=== PATIENT | male | born 1970 | race Caucasian/White ===

== ENCOUNTER 2021-01-17 17:49 | Emergency (ER) | payer OTHER, SELFPAY ==
[2021-01-17 18:31] VITALS: BP 150/79; BP 156/82; PULSE 106; PULSE 113; RESP 18; TEMP 37.4; O2SAT 96; BMI 35.4
--- NOTE | 2021-01-17 18:39 | ED_ITS ---
HPI - Alcohol General Chief Complaint: Psychiatric Symptoms Stated Complaint: SI/ETOH Source: patient and EMS Mode of arrival: EMS Limitations: no limitations History of Present Illness HPI narrative: 50-year-old male presents via EMS for alcohol abuse. Patient is requesting detox at this time. MD complaint: alcohol dependence, desires rehab and medical clearance for detox facility Last drink: Just prior to admission Chronic alcohol use: Yes Previous visits for alcohol intoxication: Yes Recent trauma: No Associated symptoms: denies other symptoms Treatments prior to arrival: none Related Data Home Medications Medication Instructions Recorded Confirmed dulaglutide 1.5 mg/0.5 mL 1.5 mg SUBCUT QWEEK 01/17/21 01/17/21 subcutaneous pen injector (Trulicity) lisinopril 20 mg tablet 1 tab PO DAILY 01/17/21 01/17/21 lorazepam 0.5 mg tablet 1 tab PO TID PRN 01/17/21 01/17/21 metformin 1,000 mg tablet 1 tab PO BID 01/17/21 01/17/21 nadolol 20 mg tablet 1 tab PO DAILY 01/17/21 01/17/21 nicotine (polacrilex) 2 mg gum 1 ea PO Q2H PRN 01/17/21 01/17/21 polyethylene glycol 3350 17 17 g PO DAILY 01/17/21 01/17/21 gram/dose oral powder Previous Rx's Medication Instructions Recorded lorazepam 2 mg tablet (Ativan) 2 mg PO Q4H PRN #7 tab 01/17/21 Allergies Allergy/AdvReac Type Severity Reaction Status Date / Time gabapentin [GABAPENTIN] AdvReac Unknown PALPITATIONS, Unverified 12/18/19 15:13 DIZZY, NAUSEA. Review of Systems Review of Systems: Constitutional: No Fever, No Chills ENT/Mouth: No sore throat, No Rhinorrhea Eyes: No Eye Pain, No Swelling, No Redness Cardiovascular: No Chest Pain, No SOB Respiratory: No Cough, No Sputum Gastrointestinal: No Nausea, No Vomiting, No Diarrhea, No abdominal Pain Genitourinary: No Dysuria, No Hematuria Musculoskeletal: No joint pain, No Myalgias, No Joint Swelling Skin: No Skin Lesions, No rash Neuro: No Weakness, No Numbness, No Loss of Consciousness, No Dizziness, No Headache Psych: Positive alcohol abuse, No Anxiety, No Depression, No SI/HI/AH/VH Heme/Lymph: No Bruising, No Bleeding,No Lymphadenopathy Endocrine: No Polyuria, No Polydipsia Yes all other systems are reviewed and are negative [facility] Past Medical History Attestation statement: The following information was validated with the patient. Source: old records reviewed Social History Social History Advance Directives: No Advance Directives Information Provided: Yes Physical Exam Vital Signs: Vital Signs: Last Vital Signs Temp 99.3 F 01/17/21 18:31 Pulse 113 H 01/17/21 18:31 Resp 18 01/17/21 18:31 BP 150/79 H 01/17/21 18:31 Pulse Ox 96 01/17/21 18:31 Body Mass Index 35.4 Appearance: Alert. Oriented X3. No acute distress. Eyes: Pupils equal, round and reactive to light. ENT: Pharynx normal. Neck: Normal inspection. Neck supple. CVS: Normal heart rate and rhythm. Pulses normal. Respiratory: No respiratory distress. Breath sounds normal. Abdomen: Soft and nontender. Skin: Skin warm and dry. Normal skin color. Normal skin turgor. Extremities: No lower extremity edema. Moves all extremities against resistance. Gait well bowels well coordinated. Neuro: No motor deficit. No sensory deficit. Cranial nerves 2-12 intact. Course Course Course Narrative: [age] year male presenting for detox assistance for alcohol abuse. Recently diagnosed with cirrhosis, and treated for alcohol withdrawal seizures at [facility] last month. Patient does state feel hopeless, and does not have any benzo diazepam at this time to help him with his withdrawal symptoms. N consult was complete while patient was in the community. Plan of care is for patient to go to [facility] in the morning. I will prescribe enough Ativan for tonight and tomorrow to help him with his withdrawal symptoms. Patient is not suicidal or homicidal, patient, [facility]N and I are in agreement with this plan. Patient does understand that he is to return any time. Could also be discharged from this facility to detox. Patient verbalized understanding of and agrees plan of care discharge home. MDM - Alcohol Differential Diagnosis Differential diagnosis: Likely alcohol dependence and alcohol withdrawal [facility] Medical Records Attestation: I reviewed the patient's medical records. Lab Data Attestation: I reviewed the patient's lab results. Result diagrams: 01/17/21 18:48 01/17/21 18:48 Labs: Lab Results 01/17/21 01/17/21 01/17/21 Range/Units 18:48 18:48 18:48 WBC 6.6 (4.8-10.8) X10*3/uL RBC 5.02 (4.60-5.80) X10*6/uL Hgb 15.0 (14.0-18.0) g/dl Hct 43.1 (42-52) % MCV 85.9 (80-98) fL MCH 29.9 (27.0-33.0) pg MCHC 34.8 (31.0-36.0) g/dl RDW 14.0 (11.0-16.0) % Plt Count 140 L (160-400) X10*3/uL MPV 9.9 (9.4-12.4) fL Immature Gran % (Auto) 0.3 (0.0-0.4) % Neut % (Auto) 63.8 (45-73) % Lymph % (Auto) 24.2 (20-40) % [place] % (Auto) 9.7 (2-11) % Eos % (Auto) 1.1 (0-4) % Baso % (Auto) 0.9 (0-2) % Lymph # (Auto) 1.6 (1.2-4.9) X10*3/uL [place] # (Auto) 0.6 (0.1-1.2) X10*3/uL Eos # (Auto) 0.1 (0.0-0.4) X10*3/uL Baso # (Auto) 0.1 (0.0-0.2) X10*3/uL Abs Immat Gran (auto) 0.02 (0.00-0.03) X10*3/uL Absolute Neuts (auto) 4.2 (2.0-8.3) X10*3/uL Absolute Nucleated RBC 0.000 (0.0-0.012) X10*3/uL Nucleated RBC % (auto) 0.0 (0.0-0.2) /100WBC Sodium 136 (135-145) mmol/L Potassium 4.1 (3.3-5.1) mmol/L Chloride 99 (96-108) mmol/L Carbon Dioxide 21 L (22-29) mmol/L Anion Gap 20 (12-20) BUN 8 L (9-16) mg/dL Creatinine 1.00 (0.5-1.4) mg/dL Estim Creat Clear Calc 125.5 Estimated GFR > 60 POC Glucose (60-115) mg/dL Random Glucose 251 H (60-115) mg/dL Calcium 9.8 (8.4-10.2) mg/dL Total Bilirubin 0.7 (0.0-1.0) mg/dL AST 67 H (5-37) U/L ALT 35 (0-40) U/L Alkaline Phosphatase 191 H (39-117) U/L Total Protein 8.3 H (6.5-8.0) g/dL Albumin 4.9 (3.5-5.0) g/dL Urine Opiates Screen (Not Detect) Urine Fentanyl Screen (Not Detect) Ur Barbiturates Screen (Not Detect) Ur Phencyclidine Scrn (Not Detect) Ur Amphetamines Screen (Not Detect) U Benzodiazepines Scrn (Not Detect) Urine Cocaine Screen (Not Detect) U Marijuana (THC) Screen (Not Detect) Ethyl Alcohol 50 mg/dL COVID-19 (CARLITOS) (Negative) COVID-19 Clin Com 01/17/21 01/17/21 01/17/21 Range/Units 18:53 19:09 19:38 WBC (4.8-10.8) X10*3/uL RBC (4.60-5.80) X10*6/uL Hgb (14.0-18.0) g/dl Hct (42-52) % MCV (80-98) fL MCH (27.0-33.0) pg MCHC (31.0-36.0) g/dl RDW (11.0-16.0) % Plt Count (160-400) X10*3/uL MPV (9.4-12.4) fL Immature Gran % (Auto) (0.0-0.4) % Neut % (Auto) (45-73) % Lymph % (Auto) (20-40) % [place] % (Auto) (2-11) % Eos % (Auto) (0-4) % Baso % (Auto) (0-2) % Lymph # (Auto) (1.2-4.9) X10*3/uL [place] # (Auto) (0.1-1.2) X10*3/uL Eos # (Auto) (0.0-0.4) X10*3/uL Baso # (Auto) (0.0-0.2) X10*3/uL Abs Immat Gran (auto) (0.00-0.03) X10*3/uL Absolute Neuts (auto) (2.0-8.3) X10*3/uL Absolute Nucleated RBC (0.0-0.012) X10*3/uL Nucleated RBC % (auto) (0.0-0.2) /100WBC Sodium (135-145) mmol/L Potassium (3.3-5.1) mmol/L Chloride (96-108) mmol/L Carbon Dioxide (22-29) mmol/L Anion Gap (12-20) BUN (9-16) mg/dL Creatinine (0.5-1.4) mg/dL Estim Creat Clear Calc Estimated GFR POC Glucose 304 H (60-115) mg/dL Random Glucose (60-115) mg/dL Calcium (8.4-10.2) mg/dL Total Bilirubin (0.0-1.0) mg/dL AST (5-37) U/L ALT (0-40) U/L Alkaline Phosphatase (39-117) U/L Total Protein (6.5-8.0) g/dL Albumin (3.5-5.0) g/dL Urine Opiates Screen Not Detected (Not Detect) Urine Fentanyl Screen Not Detected (Not Detect) Ur Barbiturates Screen POSITIVE H (Not Detect) Ur Phencyclidine Scrn Not Detected (Not Detect) Ur Amphetamines Screen Not Detected (Not Detect) U Benzodiazepines Scrn Not Detected (Not Detect) Urine Cocaine Screen Not Detected (Not Detect) U Marijuana (THC) Screen Not Detected (Not Detect) Ethyl Alcohol mg/dL COVID-19 (CARLITOS) Negative (Negative) COVID-19 Clin Com See Note Discharge Plan Discharge Clinical Impression: Alcohol abuse Patient Disposition: Home, Self-Care Instructions: Abuse of Alcohol (ED), Alcohol Withdrawal (ED) Additional Instructions: You were evaluated for alcohol abuse requesting detox. Please present to [facility] in the morning. They will pick you up. I prescribed Ativan 2 mg q.4 hours as needed for withdrawal symptoms. I prescribed 6 tablets. You are welcome to return at any time, [facility] will pick you up from this facility. Thank you for choosing this emergency department for evaluation. Please follow-up with primary care physician as needed. Return to the emergency department for any new, concerning, or worsening symptoms. Prescriptions: New lorazepam [Ativan] 2 mg tablet 2 mg PO Q4H PRN (Reason: alcohol withdrawal) Qty: 7 RF: 0 No Action nicotine (polacrilex) 2 mg gum 1 ea PO Q2H PRN (Reason: Nicotine Cravings) RF: 0 nadolol 20 mg tablet 1 tab PO DAILY RF: 0 metformin 1,000 mg tablet 1 tab PO BID RF: 0 polyethylene glycol 3350 17 gram/dose powder 17 g PO DAILY RF: 0 lisinopril 20 mg tablet 1 tab PO DAILY RF: 0 lorazepam 0.5 mg tablet 1 tab PO TID PRN (Reason: Anxiety) RF: 0 Trulicity 1.5 mg/0.5 mL pen injector 1.5 mg subcut QWEEK RF: 0
[2021-01-17 18:58] LABS: Basophils Absolute Auto 0.1 X10*3/uL (0.0-0.2); Basophils Percent Auto 0.9 % (0-2); Imm Gran Abs Auto 0.02 X10*3/uL (0.00-0.03); Imm Gran Pct Auto 0.3 % (0.0-0.4); Lymphocytes Percent Auto 24.2 % (20-40); Mean Corpuscular Volume 85.9 fL (80-98); PLT CLUMP 1; SCAN SMEAR FLAG 1
[2021-01-17 19:00] LABS: Eosinophils Absolute Auto 0.1 X10*3/uL (0.0-0.4); Eosinophils Percent Auto 1.1 % (0-4); Hematocrit 43.1 % (42-52); Lymphocytes Absolute Auto 1.6 X10*3/uL (1.2-4.9); Mean Corpuscular HGB Conc 34.8 g/dl (31.0-36.0); Mean Corpuscular Hemoglobin 29.9 pg (27.0-33.0); Mean Platelet Volume 9.9 fL (9.4-12.4); Monocytes Absolute Auto 0.6 X10*3/uL (0.1-1.2); Monocytes Percent Auto 9.7 % (2-11); Neutrophils Absolute Auto 4.2 X10*3/uL (2.0-8.3); Neutrophils Percent Auto 63.8 % (45-73); Platelet Count 140 X10*3/uL (160-400); Red Blood Count 5.02 X10*6/uL (4.60-5.80); White Blood Count 6.6 X10*3/uL (4.8-10.8)
[2021-01-17 19:01] LABS: MANUAL DIFF FLAG NO
[2021-01-17 19:13] LABS: Ethanol 50 mg/dL
[2021-01-17 19:13] LABS: Amphetamine Screen Urine Not Detected (Not Detect); Barbiturates, Urine POSITIVE (Not Detect); Benzodiazepines Screen Urine Not Detected (Not Detect); Cannabinoid Screen Urine Not Detected (Not Detect); Cocaine Screen Urine Not Detected (Not Detect); Fentanyl, urine Not Detected (Not Detect); Opiate Screen Urine Not Detected (Not Detect); Phencyclidine Screen Urine Not Detected (Not Detect)
[2021-01-17 19:14] LABS: Alanine Aminotransferase 35 U/L (0-40); Albumin Level 4.9 g/dL (3.5-5.0); Alkaline Phosphatase 191 U/L (39-117); Anion Gap 20 (12-20); Aspartate Amino Transferase 67 U/L (5-37); Bilirubin Total 0.7 mg/dL (0.0-1.0); Blood Urea Nitrogen 8 mg/dL (9-16); Calcium 9.8 mg/dL (8.4-10.2); Carbon Dioxide 21 mmol/L (22-29); Chloride 99 mmol/L (96-108); Creatinine Clr Calc Pharmacy 125.5; Estimated Glomerular Filt Rate > 60; Glucose Random 251 mg/dL (60-115); Potassium 4.1 mmol/L (3.3-5.1); Sodium 136 mmol/L (135-145); Total Protein 8.3 g/dL (6.5-8.0)
[2021-01-17 19:31] LABS: COVID-19 Test Negative (Negative)
[2021-01-17 19:42] LABS: Glucose, Whole Blood 304 mg/dL (60-115)
--- NOTE | 2021-01-17 19:44 | MHC.RECOVSUP ---
? o?? Current location[facility] ? o?? Identified substance use concern Alcohol? ?? Withdrawal ?? Seeking ATS (detox) ?? Support ? Intervention: o?? ATS bed search started/completed/in process o?? Community resources provided o?? Harm reduction discussion ? Plan: o?? Bed search in progress to o?? Follow up tomorrow? o?? Patient awaiting crisis evaluation o?? Patient to follow up with [facility] after discharge ? Additional information: ?Met with Pt. states that he has not taken his med for a few days. Started to drink because he didn't have his meds.Explained to Pt. that I could start a bed search for him .Pt. stated that he would let me know.
[2021-01-17] MEDS: metFORMIN HCl 1,000 MG TABLET 1000 MG PO (20:15)
[2021-01-17] MEDS: LORazepam 1 MG TABLET 2 MG PO (20:15)
[2021-01-17] MEDS: Nicotine Polacrilex 2 MG GUM BUCCAL (20:15)
== END 2021-01-17 22:51 | disposition home or self-care (01) ==
PROVIDERS: Nurse Practitioner Family; Emergency Provider Internal Medicine; PCP Internal Medicine
DX: F33.1 Major depressive disorder, recurrent, moderate (principal); R45.851 Suicidal ideations; F10.10 Alcohol abuse, uncomplicated; Z20.822 Contact with and (suspected) exposure to COVID-19; Z79.899 Other long term (current) drug therapy; Y90.2 Blood alcohol level of 40-59 mg/100 ml
CPT/HCPCS: 36415; 80053; 80307; 82077; 82947; 85025; 87635; 99283

== ENCOUNTER 2021-06-22 10:58 | Inpatient (IN) | payer OTHER, SELFPAY ==
--- NOTE | ~2021-06-22 | CT_ITS ---
EXAMINATION: CT ABDOMEN AND PELVIS WITH CONTRAST CLINICAL INFORMATION: Nausea, history of pancreatitis. COMPARISON: None TECHNIQUE: Multidetector volumetric images were obtained from the superior aspect of the liver through the pubic symphysis following administration 85 mL of Omnipaque 350 intravenous contrast. Sagittal and coronal reformatted images were obtained on the technologist's workstation. Oral contrast: No This CT examination was performed using dose optimization techniques as appropriate, variously including the following: *Automated exposure control *Adjustment of mA and/or kV according to patient size (this includes techniques or standardized protocols for targeted exams where dose is matched to indication/reason for exam; i.e. extremities or head) *Use of iterative reconstruction technique DLP: 1025 mGy-cm FINDINGS: LUNG BASES: The visualized lung bases are unremarkable. LIVER, GALLBLADDER, AND BILIARY TREE: The liver is normal in size, lobulated shape, and attenuation. There are multiple small hypodense lesions seen throughout the liver without mass effect. No enhancing liver lesions seen. As the hepatic ductal dilatation.. The gallbladder is unremarkable with no evidence of radiopaque gallstones, gallbladder wall thickening, or obvious pericholecystic inflammatory changes. PANCREAS: The pancreas is homogeneous in density with peripancreatic fat borders preserved and well. There is hilar haziness seen inferior to the pancreas surrounding the C-loop of the duodenum. SPLEEN: Unremarkable. ADRENAL GLANDS: Unremarkable. KIDNEYS AND URETERS: The kidneys are normal in size, shape, and attenuation. No hydronephrosis, hydroureter, or calculi seen. No perinephric stranding. There is a 1.6 cm hypodense lesion lower pole right kidney. BLADDER: Unremarkable. GASTROINTESTINAL TRACT: There is diffuse mural thickening involving the C-loop of the duodenum with inferior mesenteric haziness and abdominal mesenteric lymph nodes. The rest of the small bowel loops are normal caliber. Appendix is normal caliber. The colon is nondistended. There is mild right paracolic fascial thickening mesenteric fat stranding. ABDOMINAL WALL: No significant hernia is appreciated. LYMPH NODES: Normal. VASCULAR: There is atherosclerotic calcification of abdominal aorta without aneurysmal dilatation. PELVIC VISCERA: There are vascular calcifications seen. No free fluid or free air. The prostate gland is small and appears unremarkable. No abnormal inguinal lymph nodes. No evidence of hernia. OSSEOUS STRUCTURES: There are degenerative disc changes and vacuum disc phenomena L4-L5 and L5-S1 disc levels with mild ventral spondylosis. No lytic process seen. CT/CT abdomen pelvis w con IMPRESSION: Diffuse mural thickening involving the C-loop of the duodenum, fat stranding of the adjacent mesentery with paracolic fascial thickening and multiple micronodule appearance of the liver. The findings may be a sequela of one or more pathology. The lobulated liver contour and diffuse hyperdense micron is may represent regenerating nodules of cirrhosis. Mild mural thickening of the C-loop of duodenum may be due to pneumonitis with mesenteric inflammation and mesenteric adenitis. Mesenteric fat stranding could be secondary to venous congestion. The peripancreatic fat borders are preserved however silent pancreatitis should be a consideration for mesenteric stranding and adenopathy. Correlate with serum amylase. Fleischner guidelines were followed.
[2021-06-22 11:08] VITALS: BP 142/86; PULSE 96; RESP 17; TEMP 37.2; O2SAT 98; BMI 34.0
--- NOTE | 2021-06-22 11:13 | ECG_ITS ---
Test Reason : abdominal pain Blood Pressure : / mmHG Vent. Rate : 093 BPM Atrial Rate : 093 BPM P-R Int : 144 ms QRS Dur : 092 ms QT Int : 380 ms P-R-T Axes : 003 009 030 degrees QTc Int : 472 ms Normal sinus rhythm Normal ECG When compared with ECG of 22-DEC-2018 05:26, No significant change was found Referred By: Ana Castillo Electronically Signed By:PEGGY JOY MD
--- NOTE | 2021-06-22 11:15 | ED.ABDPAIN ---
HPI - Abdominal Pain General Chief Complaint: Abdominal Pain Stated Complaint: pancreatitis/Cirrhosis of the liver Time Seen by Provider: 06/22/21 11:03 Source: patient Mode of arrival: ambulatory Limitations: no limitations History of Present Illness MD elicited complaint: abdominal pain Pertinent past history: other (cirrhosis and pancreatitis doctors at [facility]) Onset (ago): day(s) (yesterday ) Pain Consistency: constant Location: epigastric Severity: similar to previous episodes Quality: stabbing Radiation: LUQ and RUQ Migration to: no migration Exacerbating factors: eating and movement Relieving factors: nothing Context: other (binge drinking x 3 weeks last drink at 10pm last night feels similar to his prior pancreatitis. Managed at [facility]) Associated symptoms: nausea Related Data Home Medications Medication Instructions Recorded Confirmed dulaglutide 1.5 mg/0.5 mL 1.5 mg SUBCUT FR 01/17/21 06/22/21 subcutaneous pen injector (Trulicity) lisinopril 20 mg tablet 1 tab PO DAILY 01/17/21 06/22/21 nadolol 20 mg tablet 1 tab PO DAILY 01/17/21 06/22/21 nicotine (polacrilex) 2 mg gum 1 ea PO Q2H PRN 01/17/21 06/22/21 amlodipine 5 mg tablet 1 tab PO DAILY 06/22/21 06/22/21 bupropion HCl 150 mg 24 hr tablet, 1 tab PO DAILY 06/22/21 06/22/21 extended release cholecalciferol (vitamin D3) 50 1 cap PO DAILY 06/22/21 06/22/21 mcg (2,000 unit) capsule (D3-2000) folic acid 1 mg tablet 1 tab PO DAILY 06/22/21 06/22/21 sertraline 100 mg tablet 2 tab PO BEDTIME 06/22/21 06/22/21 thiamine HCl (vitamin B1) 100 mg 1 tab PO DAILY 06/22/21 06/22/21 tablet (Vitamin B-1) Allergies Allergy/AdvReac Type Severity Reaction Status Date / Time gabapentin [GABAPENTIN] AdvReac Unknown PALPITATIONS, Unverified 12/18/19 15:13 DIZZY, NAUSEA. Review of Systems Review of Systems Constitutional : No Weight loss, No Fever, No Chills ENT/Mouth : No sore throat, No Rhinorrhea Eyes: No Swelling, No Redness Cardiovascular : No Chest Pain, No SOB, NoEdema Respiratory : No Cough, No Sputum, No Wheezing Gastrointestinal : Positive Nausea, no Vomiting, no Diarrhea, positive abdominal Pain, No Hematochezia, No Melena Genitourinary : No Dysuria, No Urinary Frequency, No Hematuria, No Urgency Musculoskeletal : No joint pain, No Myalgias, No Joint Swelling Skin : No Skin Lesions, No rash Neuro : No Weakness, No Numbness, No Dizziness, No Headache Psych : No Anxiety/Panic, No Depression Heme/Lymph: No Bruising, No Lymphadenopathy Endocrine : No Polyuria, No Polydipsia All other systems reviewed and are negative. [facility] Past Medical History Attestation statement: The following information was validated with the patient. Medical History (Updated 06/22/21 @ 14:53 by Ana Castillo DO) Alcohol withdrawal seizure Alcoholism Cirrhosis Diabetes HTN (hypertension) Pancreatitis Social History Social History Alcohol intake: current Patient Tobacco Use Status: Current everyday Tobacco user Advance Directives: Yes Advance Directives Information Provided: Yes Advance Directives on File: No Physical Exam ED Vital Signs: Vital Signs - 24 hr 06/22/21 11:08 06/22/21 11:49 06/22/21 13:37 Temperature 99 F Pulse Rate 96 98 91 Respiratory Rate 17 22 H 17 Blood Pressure 142/86 H 124/67 124/82 Pulse Oximetry 98 98 97 BMI result Body Mass Index 34.0 Appearance: Alert. Oriented X3. No acute distress. Eyes: Pupils equal, round and reactive to light. ENT: Pharynx normal. Neck: Normal inspection. Neck supple. CVS: Normal heart rate and rhythm. Pulses normal. Respiratory: No respiratory distress. Breath sounds normal. Abdomen: Soft and feels tight upper abdomen moderate ttp in upper abdomen no rebound mild guarding Skin: Skin warm and dry. Normal skin color. Normal skin turgor. Extremities: No lower extremity edema. No calf ttp Neuro: Oriented X 3. No motor deficit. No sensory deficit. Course Course Course Narrative: asking for repeat pain medications with exact dosages to RN including 1mg dilaudid and 10mg oxycodone, RN notes patient now states he took 1mg ativan PO prior to arrival [facility] admit 05/03 to 05/09 but notes limited - lipase 69, CT scan peripancreatic stranding with adjacent fluid and stranding near duodenum lipase normal - CT scan pending lactic acidosis due to cirrhosis and not infection or severe sepsis CT scan ?duodenitis MDM - Abdominal Pain MDM Narrative Medical decision making narrative: 51 yo male with hx of HTN, DM, ETOH cirrhosis with esophageal varices, reports 1 episode of withdrawal seizures, pancreatitis related to ETOH comes in with 3 week ETOH binge last drink 10pm. He notes that he feels nauseated with upper abdominal pain and tight abdomen which feels similar to prior pancreatitis although he was able to eat a [employer] hamburger prior to arrival which is impressive. He has not had prior paracentesis in the past. At this time labs, CT scan for pancreatitis ordered, LR IVF, IV dilaudid and ativan for symptom control, IV thiamine. Dispo per results and findings. Lab Data Result diagrams: 06/22/21 11:21 06/22/21 11:21 Labs: Lab Results 06/22/21 06/22/21 06/22/21 Range/Units 11:21 11:21 11:21 WBC 3.9 L (4.8-10.8) X10*3/uL RBC 4.19 L (4.60-5.80) X10*6/uL Hgb 11.9 L (14.0-18.0) g/dl Hct 36.8 L (42.0-52.0) % MCV 87.8 (80.0-98.0) fL MCH 28.4 (27.0-33.0) pg MCHC 32.3 (31.0-36.0) g/dl RDW 15.0 (11.0-16.0) % Plt Count 124 L (160-400) X10*3/uL MPV 10.4 (9.4-12.4) fL Immature Gran % (Auto) 0.5 H (0.0-0.4) % Neut % (Auto) 57.8 (45-73) % Lymph % (Auto) 25.8 (20-40) % [place] % (Auto) 12.6 H (2-11) % Eos % (Auto) 2.8 (0-4) % Baso % (Auto) 0.5 (0-2) % Lymph # (Auto) 1.0 L (1.2-4.9) X10*3/uL [place] # (Auto) 0.5 (0.1-1.2) X10*3/uL Eos # (Auto) 0.1 (0.0-0.4) X10*3/uL Baso # (Auto) 0.0 (0.0-0.2) X10*3/uL Abs Immat Gran (auto) 0.02 (0.00-0.03) X10*3/uL Absolute Neuts (auto) 2.2 (2.0-8.3) x10*3/uL Absolute Nucleated RBC 0.000 (0.0-0.012) X10*3/uL Nucleated RBC % (auto) 0.0 (0.0-0.2) /100WBC PT (9.9-13.0) SEC INR (0.9-1.1) APTT (24.1-38.0) SEC Sodium 132 L (135-145) mmol/L Potassium 4.2 (3.3-5.1) mmol/L Chloride 95 L (96-108) mmol/L Carbon Dioxide 26 (22-29) mmol/L Anion Gap 15 (12-20) BUN 4 L (9-16) mg/dL Creatinine 0.90 (0.5-1.4) mg/dL Estim Creat Clear Calc 135.1 Estimated GFR > 60 Random Glucose 291 H (60-115) mg/dL Lactic Acid (0.5-2.0) mmol/L Calcium 9.5 (8.4-10.2) mg/dL Magnesium 1.9 (1.6-2.6) mg/dL Total Bilirubin 1.1 H (0.0-1.0) mg/dL Direct Bilirubin 0.6 H (0.0-0.5) mg/dL AST 103 H (5-37) U/L ALT 40 (0-40) U/L Alkaline Phosphatase 259 H D (39-117) U/L Ammonia 48 (13-55) umol/L Lactate Dehydrogenase 143 (118-273) U/L Total Protein 7.3 (6.5-8.0) g/dL Albumin 4.2 (3.5-5.0) g/dL Lipase 57 (8-78) U/L Urine Color Urine Appearance Urine pH (5.0-8.0) Ur Specific [place] (1.005-1.025) Urine Protein (NEG-TRACE) MG/DL Urine Glucose (UA) (NEG) MG/DL Urine Ketones (NEG) MG/DL Urine Blood (NEG) Urine Nitrite (NEG) Ur Leukocyte Esterase (NEG) Urine Opiates Screen (Not Detect) Urine Fentanyl Screen (Not Detect) Ur Barbiturates Screen (Not Detect) Ur Phencyclidine Scrn (Not Detect) Ur Amphetamines Screen (Not Detect) U Benzodiazepines Scrn (Not Detect) Urine Cocaine Screen (Not Detect) U Marijuana (THC) Screen (Not Detect) Ethyl Alcohol mg/dL COVID-19 (CARLITOS) (Negative) COVID-19 Clin Com 06/22/21 06/22/21 06/22/21 Range/Units 11:21 12:54 12:54 WBC (4.8-10.8) X10*3/uL RBC (4.60-5.80) X10*6/uL Hgb (14.0-18.0) g/dl Hct (42.0-52.0) % MCV (80.0-98.0) fL MCH (27.0-33.0) pg MCHC (31.0-36.0) g/dl RDW (11.0-16.0) % Plt Count (160-400) X10*3/uL MPV (9.4-12.4) fL Immature Gran % (Auto) (0.0-0.4) % Neut % (Auto) (45-73) % Lymph % (Auto) (20-40) % [place] % (Auto) (2-11) % Eos % (Auto) (0-4) % Baso % (Auto) (0-2) % Lymph # (Auto) (1.2-4.9) X10*3/uL [place] # (Auto) (0.1-1.2) X10*3/uL Eos # (Auto) (0.0-0.4) X10*3/uL Baso # (Auto) (0.0-0.2) X10*3/uL Abs Immat Gran (auto) (0.00-0.03) X10*3/uL Absolute Neuts (auto) (2.0-8.3) x10*3/uL Absolute Nucleated RBC (0.0-0.012) X10*3/uL Nucleated RBC % (auto) (0.0-0.2) /100WBC PT 13.1 H (9.9-13.0) SEC INR 1.2 H (0.9-1.1) APTT 34.4 (24.1-38.0) SEC Sodium (135-145) mmol/L Potassium (3.3-5.1) mmol/L Chloride (96-108) mmol/L Carbon Dioxide (22-29) mmol/L Anion Gap (12-20) BUN (9-16) mg/dL Creatinine (0.5-1.4) mg/dL Estim Creat Clear Calc Estimated GFR Random Glucose (60-115) mg/dL Lactic Acid 2.3 H* (0.5-2.0) mmol/L Calcium (8.4-10.2) mg/dL Magnesium (1.6-2.6) mg/dL Total Bilirubin (0.0-1.0) mg/dL Direct Bilirubin (0.0-0.5) mg/dL AST (5-37) U/L ALT (0-40) U/L Alkaline Phosphatase (39-117) U/L Ammonia (13-55) umol/L Lactate Dehydrogenase (118-273) U/L Total Protein (6.5-8.0) g/dL Albumin (3.5-5.0) g/dL Lipase (8-78) U/L Urine Color Urine Appearance Urine pH (5.0-8.0) Ur Specific [place] (1.005-1.025) Urine Protein (NEG-TRACE) MG/DL Urine Glucose (UA) (NEG) MG/DL Urine Ketones (NEG) MG/DL Urine Blood (NEG) Urine Nitrite (NEG) Ur Leukocyte Esterase (NEG) Urine Opiates Screen (Not Detect) Urine Fentanyl Screen (Not Detect) Ur Barbiturates Screen (Not Detect) Ur Phencyclidine Scrn (Not Detect) Ur Amphetamines Screen (Not Detect) U Benzodiazepines Scrn (Not Detect) Urine Cocaine Screen (Not Detect) U Marijuana (THC) Screen (Not Detect) Ethyl Alcohol mg/dL COVID-19 (CARLITOS) Negative (Negative) COVID-19 Clin Com See Note 06/22/21 06/22/2122 Range/Units 12:54 12:56 12:56 WBC (4.8-10.8) X10*3/uL RBC (4.60-5.80) X10*6/uL Hgb (14.0-18.0) g/dl Hct (42.0-52.0) % MCV (80.0-98.0) fL MCH (27.0-33.0) pg MCHC (31.0-36.0) g/dl RDW (11.0-16.0) % Plt Count (160-400) X10*3/uL MPV (9.4-12.4) fL Immature Gran % (Auto) (0.0-0.4) % Neut % (Auto) (45-73) % Lymph % (Auto) (20-40) % [place] % (Auto) (2-11) % Eos % (Auto) (0-4) % Baso % (Auto) (0-2) % Lymph # (Auto) (1.2-4.9) X10*3/uL [place] # (Auto) (0.1-1.2) X10*3/uL Eos # (Auto) (0.0-0.4) X10*3/uL Baso # (Auto) (0.0-0.2) X10*3/uL Abs Immat Gran (auto) (0.00-0.03) X10*3/uL Absolute Neuts (auto) (2.0-8.3) x10*3/uL Absolute Nucleated RBC (0.0-0.012) X10*3/uL Nucleated RBC % (auto) (0.0-0.2) /100WBC PT (9.9-13.0) SEC INR (0.9-1.1) APTT (24.1-38.0) SEC Sodium (135-145) mmol/L Potassium (3.3-5.1) mmol/L Chloride (96-108) mmol/L Carbon Dioxide (22-29) mmol/L Anion Gap (12-20) BUN (9-16) mg/dL Creatinine (0.5-1.4) mg/dL Estim Creat Clear Calc Estimated GFR Random Glucose (60-115) mg/dL Lactic Acid (0.5-2.0) mmol/L Calcium (8.4-10.2) mg/dL Magnesium (1.6-2.6) mg/dL Total Bilirubin (0.0-1.0) mg/dL Direct Bilirubin (0.0-0.5) mg/dL AST (5-37) U/L ALT (0-40) U/L Alkaline Phosphatase (39-117) U/L Ammonia (13-55) umol/L Lactate Dehydrogenase (118-273) U/L Total Protein (6.5-8.0) g/dL Albumin (3.5-5.0) g/dL Lipase (8-78) U/L Urine Color YELLOW Urine Appearance HAZY Urine pH 6.0 (5.0-8.0) Ur Specific [place] 1.020 (1.005-1.025) Urine Protein NEG (NEG-TRACE) MG/DL Urine Glucose (UA) 500 H (NEG) MG/DL Urine Ketones 15 (NEG) MG/DL Urine Blood NEG (NEG) Urine Nitrite NEG (NEG) Ur Leukocyte Esterase NEG (NEG) Urine Opiates Screen Not Detected (Not Detect) Urine Fentanyl Screen Not Detected (Not Detect) Ur Barbiturates Screen Not Detected (Not Detect) Ur Phencyclidine Scrn Not Detected (Not Detect) Ur Amphetamines Screen Not Detected (Not Detect) U Benzodiazepines Scrn Not Detected (Not Detect) Urine Cocaine Screen Not Detected (Not Detect) U Marijuana (THC) Screen Not Detected (Not Detect) Ethyl Alcohol < 10 mg/dL COVID-19 (CARLITOS) (Negative) COVID-19 Clin Com ECG Data Attestation: I personally reviewed and interpreted this ECG as follows: ECG interpretation date: 06/22/21 ECG interpretation time: 12:43 Interpretation: Rate: 93 Rhythm: NSR [place]: normal Normal P waves. Normal GIGI. Normal QRS complex. ST T wave : normal no LISSA qTC: normal prior studies: no acute ischemia The study has been interpreted contemporaneously by me. Discharge Plan Discharge Clinical Impression: Abdominal pain, Alcohol abuse, Acute duodenitis, Acidosis, lactic Patient Disposition: Admitted As Inpatient Prescriptions: No Action sertraline 100 mg tablet 2 tab PO BEDTIME 0RF thiamine HCl (vitamin B1) [Vitamin B-1] 100 mg tablet 1 tab PO DAILY 0RF folic acid 1 mg tablet 1 tab PO DAILY 0RF bupropion HCl 150 mg tablet extended release 24 hr 1 tab PO DAILY 0RF cholecalciferol (vitamin D3) [D3-2000] 50 mcg (2,000 unit) capsule 1 cap PO DAILY 0RF amlodipine 5 mg tablet 1 tab PO DAILY 0RF nicotine (polacrilex) 2 mg gum 1 ea PO Q2H PRN (Reason: Nicotine Cravings) 0RF nadolol 20 mg tablet 1 tab PO DAILY 0RF lisinopril 20 mg tablet 1 tab PO DAILY 0RF Trulicity 1.5 mg/0.5 mL pen injector 1.5 mg subcut FR 0RF
[2021-06-22 11:28] LABS: MANUAL DIFF FLAG NO
[2021-06-22] MEDS: HYDROmorphone HCl 0.5 MG/0.5 ML SYRINGE IVPUSH (11:30)
[2021-06-22 11:31] LABS: Basophils Percent Auto 0.5 % (0-2); Eosinophils Absolute Auto 0.1 X10*3/uL (0.0-0.4); Eosinophils Percent Auto 2.8 % (0-4); Hematocrit 36.8 % (42.0-52.0); Hemoglobin 11.9 g/dl (14.0-18.0); Imm Gran Abs Auto 0.02 X10*3/uL (0.00-0.03); Imm Gran Pct Auto 0.5 % (0.0-0.4); Lymphocytes Percent Auto 25.8 % (20-40); Mean Corpuscular HGB Conc 32.3 g/dl (31.0-36.0); Mean Corpuscular Hemoglobin 28.4 pg (27.0-33.0); Mean Corpuscular Volume 87.8 fL (80.0-98.0); Mean Platelet Volume 10.4 fL (9.4-12.4); Monocytes Absolute Auto 0.5 X10*3/uL (0.1-1.2); Monocytes Percent Auto 12.6 % (2-11); Neutrophils Absolute Auto 2.2 x10*3/uL (2.0-8.3); Neutrophils Percent Auto 57.8 % (45-73); Platelet Count 124 X10*3/uL (160-400); Red Blood Count 4.19 X10*6/uL (4.60-5.80); White Blood Count 3.9 X10*3/uL (4.8-10.8)
[2021-06-22] MEDS: ondansetron HCL 4 MG/2 ML VIAL IVPUSH (11:31)
[2021-06-22] MEDS: Lactated Ringers 1,000 ML 999 ML IV (11:33)
[2021-06-22] MEDS: LORazepam 2 MG/ML VIAL 1 MG IVPUSH (11:33)
[2021-06-22 11:43] LABS: COVID-19 Test Negative (Negative); IDNOW Serial# 55D5AD1C
[2021-06-22] MEDS: Thiamine HCL 200 MG in 0.9 % Sodium Chloride 100 ML 204 MG IV (11:46)
[2021-06-22] MEDS: Lidocaine HCl Viscous 2 % 15 ML SOLUTION MUCOUS MEM (11:47)
[2021-06-22] MEDS: Magnesium Hydrox/Alum Hydrox 30 ML ORAL.SUSP 15 ML PO ×2 (11:47→23:58)
[2021-06-22 11:49] VITALS: BP 124/67; PULSE 98; RESP 22; O2SAT 98
[2021-06-22 11:56] LABS: Ammonia 48 umol/L (13-55)
[2021-06-22 11:59] LABS: Alanine Aminotransferase 40 U/L (0-40); Albumin Level 4.2 g/dL (3.5-5.0); Alkaline Phosphatase 259 U/L (39-117); Anion Gap 15 (12-20); Aspartate Amino Transferase 103 U/L (5-37); Bilirubin Direct 0.6 mg/dL (0.0-0.5); Bilirubin Total 1.1 mg/dL (0.0-1.0); Blood Urea Nitrogen 4 mg/dL (9-16); Calcium 9.5 mg/dL (8.4-10.2); Carbon Dioxide 26 mmol/L (22-29); Chloride 95 mmol/L (96-108); Creatinine Clr Calc Pharmacy 135.1; Estimated Glomerular Filt Rate > 60; Glucose Random 291 mg/dL (60-115); Lipase 57 U/L (8-78); Magnesium 1.9 mg/dL (1.6-2.6); Potassium 4.2 mmol/L (3.3-5.1); Sodium 132 mmol/L (135-145); Total Protein 7.3 g/dL (6.5-8.0)
[2021-06-22 12:19] LABS: Lactate Dehydrogenase 143 U/L (118-273)
--- NOTE | 2021-06-22 12:27 | PHA.MEDREC ---
Pharmacy Consult ? Medication Reconciliation Pharmacy has completed the medication reconciliation. Patient is adamant that he is taking amlodpine but he is out of refilled. It was last filled December 2020. Beth Suarez, KarrieD
[2021-06-22 13:03] LABS: Appearance Urine HAZY; Color Urine YELLOW; Glucose Urine UA 500 MG/DL (NEG); Leukocyte Esterase Urine NEG (NEG); Nitrite Urine NEG (NEG); Urine Blood NEG (NEG); Urine Ketones 15 MG/DL (NEG); Urine Protein NEG (NEG-TRACE)
[2021-06-22] MEDS: iohexoL 350 MG/ML 100 ML INFUS..BTL IV (13:05)
[2021-06-22] MEDS: HYDROmorphone HCl 1 MG/ML SYRINGE IVPUSH ×2 (13:07→17:42)
[2021-06-22 13:14] LABS: Ethanol < 10 mg/dL
[2021-06-22 13:17] LABS: Amphetamine Screen Urine Not Detected (Not Detect); Barbiturates, Urine Not Detected (Not Detect); Benzodiazepines Screen Urine Not Detected (Not Detect); Cannabinoid Screen Urine Not Detected (Not Detect); Cocaine Screen Urine Not Detected (Not Detect); Fentanyl, urine Not Detected (Not Detect); Opiate Screen Urine Not Detected (Not Detect); Phencyclidine Screen Urine Not Detected (Not Detect)
[2021-06-22 13:18] LABS: INTERNATIONAL NORM RATIO 1.2 (0.9-1.1); Lactic Acid 2.3 mmol/L (0.5-2.0); Prothrombin Time 13.1 SEC (9.9-13.0)
[2021-06-22 13:21] LABS: Partial Thromboplastin Time 34.4 SEC (24.1-38.0)
[2021-06-22 13:37] VITALS: BP 124/82; PULSE 91; RESP 17; O2SAT 97
[2021-06-22 14:59] LABS: Reflex Lactate? Lactic Acid Added
[2021-06-22 15:52] VITALS: BP 139/74; PULSE 89; RESP 19; O2SAT 97
[2021-06-22 15:54] VITALS: PULSE 85; RESP 18; O2SAT 97
[2021-06-22] MEDS: PHENobarbitaL sodium 130 MG/ML VIAL 329 MG IM (15:56)
[2021-06-22] MEDS: Pantoprazole Sodium 40 MG/10 ML VIAL IVPUSH ×2 (15:57→21:03)
--- NOTE | 2021-06-22 16:00 | P.HPHOSP_ITS ---
History of Present Illness Date of Service: 06/22/21 Attending physician on admission: Baldo Carrillo Chief Complaint: abdominal pain 51-year-old gentleman with past medical history significant for alcoholic cirrhosis, alcoholic hepatitis, history of recurrent episodes of pancreatitis, history of alcohol use disorder, esophageal varices, GERD, hypertension, hyperlipidemia and obstructed sleep apnea presented to [facility] due to abdominal pain, as per patient he has been sober on and off he relapsed 3 weeks ago and have been drinking 8 beers per day in addition to 2 nips of vodka, he developed abdominal pain 1 week ago localize to both right and left upper quadrants associated with nausea and intermittent vomiting, associated with diarrhea, decrease by mouth intake, denies hematemesis or melena he also noted abdominal distension of few days duration, he stopped drinking but developed withdrawal symptoms of shakiness and hand tremors so he had 1 beer last night, due to persistent abdominal pain he came to the emergency room, patient denies fever chills, no shortness of breath, no headache, no dizziness no urinary symptoms, in the emergency room he was noted to have mild tachycardia, tachypnea he was afebrile with normal oxygenation, CT abdomen and pelvis showed diffuse mural thickening involving C-loop of the duodenum fat stranding of adjacent mesentery, finding suggestive of duodenitis and mild pancreatitis, patient also noted to have elevated lactic acid therefore treated in the emergency room with IV fluids, IV Dilaudid and phenobarb for alcohol withdrawal and now being admitted with concern for alcohol withdrawal and abdominal pain related to gastritis / duodenitis with difficulty keeping food down. Review of Systems Review of Systems: General no headache no dizziness no fever chills. CVS no chest pain, no palpitation. Respiratory no cough ,no sputum production no respiratory distress. Gastrointestinal constant abdominal pain nausea vomiting and diarrhea no urinary urgency, no frequency musculoskeletal chronic neck pain skin no rash Yes all other systems are reviewed and are negative [facility] Medical History Alcohol withdrawal seizure Alcoholism Cirrhosis Diabetes HTN (hypertension) Pancreatitis Pertinent family history: parents are , father had thyroid problems, mother had degenerative joint disease no history of premature coronary artery disease. Social History Alcohol intake: current Patient Tobacco Use Status: Current everyday Tobacco user Advance Directives: Yes Advance Directives Information Provided: Yes Advance Directives on File: No Meds Allergies Allergy/AdvReac Type Severity Reaction Status Date / Time gabapentin [GABAPENTIN] AdvReac Unknown PALPITATIONS, Unverified 12/18/19 15:13 DIZZY, NAUSEA. Active Medications: Current Medications Acetaminophen (Acetaminophen 325 Mg Tablet) 650 mg PO Q6H PRN PRN Reason: Pain, Mild (Pain Scale 1-3) Amlodipine Besylate (Amlodipine Besylate 5 Mg Tablet) 5 mg PO DAILY [facility]; Protocol Bupropion HCl (Bupropion Hcl Xl 150 Mg Tab.Er.24h) 150 mg PO DAILY [facility] Dextrose (Dextrose 50 % 25 Gm/50 Ml Vial) 25 gm IVPUSH Q15M PRN; Protocol PRN Reason: per Hypoglycemia Standing Ord. Folic Acid (Folic Acid 1 Mg Tablet) 1 mg PO DAILY [facility] Glucose (Glucose Gel 15 Gm Gel..Gram.) 15 gm PO Q15M PRN; Protocol PRN Reason: per Hypoglycemia Standing Ord. Hydromorphone HCl (Hydromorphone Hcl 1 Mg/Ml Syringe) 1 mg IVPUSH Q6H PRN; Protocol PRN Reason: Pain, Severe (Pain Scale 7-10) Sodium Chloride (Ns) 1,000 mls @ 125 mls/hr IVCONT .Q8H [facility] Insulin Human Lispro (Insulin Lispro 100 Unit/Ml 3 Ml Vial) 0 unit SUBCUT QIDACHS [facility]; Protocol Nadolol (Nadolol 20 Mg Tablet) 20 mg PO DAILY [facility]; Protocol Nicotine Polacrilex (Nicotine Polacrilex 2 Mg Gum) mg BUCCAL Q2H PRN PRN Reason: Nicotine Cravings Ondansetron HCl (Ondansetron Hcl 4 Mg/2 Ml Vial) 4 mg IVPUSH Q8H PRN PRN Reason: Nausea and Vomiting Oxycodone HCl (Oxycodone Hcl Immed Release 5 Mg Tablet) 5 mg PO Q4H PRN PRN Reason: Pain, Moderate (Pain Scale 4-6 Pantoprazole Sodium (Pantoprazole Sodium 40 Mg/10 Ml Vial) 40 mg IVPUSH BID [facility] Pharmacy Consult (Consult Rx Perform Med Rec) 1 each MISCELLANE ONCE PRN PRN Reason: Consult order Phenobarbital (Phenobarbital 30 Mg Tablet) 60 mg PO BID [facility] Stop: 06/24/21 21:01 Phenobarbital (Phenobarbital 30 Mg Tablet) 30 mg PO BID [facility] Stop: 06/26/21 21:01 Phenobarbital (Phenobarbital 30 Mg Tablet) 30 mg PO DAILY [facility] Stop: 06/28/21 09:01 Phenobarbital Sodium (Phenobarbital Sodium 130 Mg/Ml Vial) 247 mg IM Q3H [facility] Stop: 06/22/21 21:01 Sertraline HCl (Sertraline Hcl 100 Mg Tablet) 200 mg PO BEDTIME [facility] Sodium Chloride (0.9 % Sodium Chloride Flush 3 Ml Syringe) 3 ml IVFLUSH QSHIFT [facility] Thiamine HCl (Thiamine Hcl 100 Mg Tablet) 100 mg PO DAILY [facility] Vitamin D (Cholecalciferol (Vitamin D3) 25 Mcg Tablet) 50 mcg PO DAILY [facility] Home Medications Medication Instructions Recorded Confirmed Last Taken Type dulaglutide 1.5 mg/0.5 mL 1.5 mg SUBCUT FR 01/17/21 06/22/21 06/17/21 History subcutaneous pen injector (Trulicity) lisinopril 20 mg tablet 1 tab PO DAILY 01/17/21 06/22/21 06/21/21 History nadolol 20 mg tablet 1 tab PO DAILY 01/17/21 06/22/21 06/21/21 History nicotine (polacrilex) 2 mg gum 1 ea PO Q2H PRN 01/17/21 06/22/21 Unknown History amlodipine 5 mg tablet 1 tab PO DAILY 06/22/21 06/22/21 06/21/21 History bupropion HCl 150 mg 24 hr tablet, 1 tab PO DAILY 06/22/21 06/22/21 06/21/21 History extended release cholecalciferol (vitamin D3) 50 1 cap PO DAILY 06/22/21 06/22/21 06/21/21 History mcg (2,000 unit) capsule (D3-2000) folic acid 1 mg tablet 1 tab PO DAILY 06/22/21 06/22/21 06/21/21 History sertraline 100 mg tablet 2 tab PO BEDTIME 06/22/21 06/22/21 06/21/21 History thiamine HCl (vitamin B1) 100 mg 1 tab PO DAILY 06/22/21 06/22/21 06/21/21 History tablet (Vitamin B-1) Physical Exam Vital Signs and Narrative: Vital Signs: Last Vital Signs Temp 99 F 06/22/21 11:08 Pulse 85 06/22/21 15:54 Resp 18 06/22/21 15:54 BP 139/74 06/22/21 15:52 Pulse Ox 97 06/22/21 15:54 BMI result Body Mass Index 34.0 Const: Other: General Awake alert mild distress due to abdominal pain HEENT pupil, round,reactive to light and accommodation, anicteric sclerae Neck supple no JVD. CVS regular rate rhythm, Respiratory lungs clear to auscultation, no respiratory distress, no wheeze, no rhonchi. Gastrointestinal abdomen distended, tender to palpation both right and left upper quadrant, no guarding , no rigidity. Extremities no edema. Neuro nonfocal , speech clear. Skin no rash psych appropriate affect Results Labs CBC and Chem 7: 06/22/21 11:21 06/22/21 11:21 Labs: Laboratory Results - last 24 hr 06/22/21 06/22/21 06/22/21 11:21 11:21 11:21 MCV 87.8 MCH 28.4 MCHC 32.3 RDW 15.0 Plt Count 124 L MPV 10.4 Immature Gran % (Auto) 0.5 H Neut % (Auto) 57.8 Lymph % (Auto) 25.8 [place] % (Auto) 12.6 H Eos % (Auto) 2.8 Baso % (Auto) 0.5 Lymph # (Auto) 1.0 L [place] # (Auto) 0.5 Eos # (Auto) 0.1 Baso # (Auto) 0.0 Abs Immat Gran (auto) 0.02 Absolute Neuts (auto) 2.2 Absolute Nucleated RBC 0.000 Nucleated RBC % (auto) 0.0 PT INR APTT Anion Gap 15 Estim Creat Clear Calc 135.1 Estimated GFR > 60 Random Glucose 291 H Lactic Acid Calcium 9.5 Magnesium 1.9 Total Bilirubin 1.1 H Direct Bilirubin 0.6 H AST 103 H ALT 40 Alkaline Phosphatase 259 H D Ammonia 48 Lactate Dehydrogenase 143 Total Protein 7.3 Albumin 4.2 Lipase 57 Urine Color Urine Appearance Urine pH Ur Specific [place] Urine Protein Urine Glucose (UA) Urine Ketones Urine Blood Urine Nitrite Ur Leukocyte Esterase Urine Opiates Screen Urine Fentanyl Screen Ur Barbiturates Screen Ur Phencyclidine Scrn Ur Amphetamines Screen U Benzodiazepines Scrn Urine Cocaine Screen U Marijuana (THC) Screen Ethyl Alcohol COVID-19 (CARLITOS) COVID-19 Clin Com 06/22/21 06/22/21 06/22/21 11:21 12:54 12:54 MCV MCH MCHC RDW Plt Count MPV Immature Gran % (Auto) Neut % (Auto) Lymph % (Auto) [place] % (Auto) Eos % (Auto) Baso % (Auto) Lymph # (Auto) [place] # (Auto) Eos # (Auto) Baso # (Auto) Abs Immat Gran (auto) Absolute Neuts (auto) Absolute Nucleated RBC Nucleated RBC % (auto) PT 13.1 H INR 1.2 H APTT 34.4 Anion Gap Estim Creat Clear Calc Estimated GFR Random Glucose Lactic Acid 2.3 H* Calcium Magnesium Total Bilirubin Direct Bilirubin AST ALT Alkaline Phosphatase Ammonia Lactate Dehydrogenase Total Protein Albumin Lipase Urine Color Urine Appearance Urine pH Ur Specific [place] Urine Protein Urine Glucose (UA) Urine Ketones Urine Blood Urine Nitrite Ur Leukocyte Esterase Urine Opiates Screen Urine Fentanyl Screen Ur Barbiturates Screen Ur Phencyclidine Scrn Ur Amphetamines Screen U Benzodiazepines Scrn Urine Cocaine Screen U Marijuana (THC) Screen Ethyl Alcohol COVID-19 (CARLITOS) Negative COVID-19 Clin Com See Note 06/22/21 06/22/21 06/22/21 12:54 12:56 12:56 MCV MCH MCHC RDW Plt Count MPV Immature Gran % (Auto) Neut % (Auto) Lymph % (Auto) [place] % (Auto) Eos % (Auto) Baso % (Auto) Lymph # (Auto) [place] # (Auto) Eos # (Auto) Baso # (Auto) Abs Immat Gran (auto) Absolute Neuts (auto) Absolute Nucleated RBC Nucleated RBC % (auto) PT INR APTT Anion Gap Estim Creat Clear Calc Estimated GFR Random Glucose Lactic Acid Calcium Magnesium Total Bilirubin Direct Bilirubin AST ALT Alkaline Phosphatase Ammonia Lactate Dehydrogenase Total Protein Albumin Lipase Urine Color YELLOW Urine Appearance HAZY Urine pH 6.0 Ur Specific [place] 1.020 Urine Protein NEG Urine Glucose (UA) 500 H Urine Ketones 15 Urine Blood NEG Urine Nitrite NEG Ur Leukocyte Esterase NEG Urine Opiates Screen Not Detected Urine Fentanyl Screen Not Detected Ur Barbiturates Screen Not Detected Ur Phencyclidine Scrn Not Detected Ur Amphetamines Screen Not Detected U Benzodiazepines Scrn Not Detected Urine Cocaine Screen Not Detected U Marijuana (THC) Screen Not Detected Ethyl Alcohol < 10 COVID-19 (CARLITOS) COVID-19 Clin Com Imaging Radiologist's Impressions: Impressions Abdomen/Pelvis CT 06/22/21 13:08 IMPRESSION: Diffuse mural thickening involving the C-loop of the duodenum, fat stranding of the adjacent mesentery with paracolic fascial thickening and multiple micronodule appearance of the liver. The findings may be a sequela of one or more pathology. The lobulated liver contour and diffuse hyperdense micron is may represent regenerating nodules of cirrhosis. Mild mural thickening of the C-loop of duodenum may be due to pneumonitis with mesenteric inflammation and mesenteric adenitis. Mesenteric fat stranding could be secondary to venous congestion. The peripancreatic fat borders are preserved however silent pancreatitis should be a consideration for mesenteric stranding and adenopathy. Correlate with serum amylase. Fleischner guidelines were followed. Assessment and Plan (1) Alcohol abuse: Status: Acute (2) Acute duodenitis: Status: Acute (3) Acidosis, lactic: Status: Acute (4) Abdominal pain: Qualifiers: Abdominal location: upper abdomen, unspecified Qualified Code(s): R10.10 - Upper abdominal pain, unspecified Status: Acute Plan 51-year-old gentleman with past medical history significant for alcoholic cirrhosis, alcoholic hepatitis, alcohol use disorder, history of recurrent pancreatitis, esophageal varices, GERD, hypertension, hyperlipidemia and obstructive sleep apnea with recurrent hospitalization to [facility] for pancreatitis presented to [facility] due to abdominal pain and alcohol withdrawal symptoms is being admitted to [facility] with a diagnosis of acute pancreatitis and alcohol withdrawal. Abdominal pain likely due recurrent pancreatitis/ duodenitis symptoms likely related to alcohol abuse, status post endoscopy 6 months ago at [facility] that showed esophageal varices, patient denies hematemesis or melena hematocrit is low but stable, follow CBC lipase 57 will admit to medical floor placed on IV Protonix, IV Dilaudid and as needed oxycodone continue IV fluid, IV analgesic place on clear liquid diet and advance diet as tolerated alcohol use disorder with high likelihood of alcohol withdrawal strongly advised to abstain from alcohol will continue phenobarb protocol, folic acid and thiamine obtain care team consult lactic acidosis 2.3, due to alcohol, will treat with IV fluids and follow labs Diabetes mellitus will place on clear liquid diet hold insulin advanced diet as tolerated will place on insulin sliding scale follow blood sugar closely hypertension will continue amlodipine and nadolol, will hold lisinopril and resume if BP allows obstructive sleep apnea will order CPAP history of esophageal varices continue nadolol nicotine dependence continue Nicorette gums, counseling done history of anxiety continue sertraline and bupropion pancytopenia seems chronic due to alcohol liver disease code status full code DVT prophylaxis with compression boots avoid anticoagulation due to low platelet patient will need two inpatient nights due to high likelihood of alcohol withdrawal on phenobarb protocol as well as decreased by mouth intake due to nausea vomiting related to acute pancreatitis will need IV hydration and IV analgesics for pain control. Quality Stroke Does the patient have a stroke diagnosis?: No VTE Prior VTE?: No VTE Risk Level:: Medical - moderate - high VTE Device Contraindication: N/A - Device Ordered VTE Drug Contraindication: Treatment Not Indicated
[2021-06-22] MEDS: 0.9 % Sodium Chloride 1,000 ML 125 ML IVCONT (16:08)
[2021-06-22] MEDS: 0.9 % Sodium Chloride Flush 3 ML SYRINGE IVFLUSH (16:09)
[2021-06-22 16:55] LABS: ~Lactic Acid-LAB USE ONLY 2.3 mmol/L (0.5-2.0)
[2021-06-22 18:33] LABS: Reflex Lactate? 2 Y
[2021-06-22 18:51] LABS: Glucose, Whole Blood 161 mg/dL (60-115)
[2021-06-22] MEDS: PHENobarbitaL sodium 130 MG/ML VIAL 247 MG IM ×2 (19:00→21:03)
[2021-06-22] MEDS: Insulin Lispro 100 UNIT/ML 3 ML VIAL SUBCUT ×2 (19:00→23:32)
[2021-06-22 19:40] LABS: ~Lactic Acid-LAB USE ONLY 3.4 mmol/L (0.5-2.0)
[2021-06-22] MEDS: Sertraline HCL 100 MG TABLET 200 MG PO (21:04)
--- NOTE | 2021-06-22 22:51 | MHC.CM.PN ---
CM met with admitted patient with bed assignment pending. IMM 06/22. A&ox3. No HCP on file. Declines. Pfizer x1. Lives alone. [employer] 20 hours/week, uses a cane. Needs Recovery services/CARE team. D/C plan: Home with existing services. Pt to arrange transportation.
[2021-06-22 22:52] LABS: Glucose, Whole Blood 169 mg/dL (60-115)
[2021-06-22] MEDS: oxyCODONE HCl Immed Release 5 MG TABLET PO (23:32)
[2021-06-23] VITALS (7 sets, daily range): BP systolic 115–143; BP diastolic 72–86; PULSE 83–87; RESP 14–25; TEMP 36.4–37.4; O2SAT 91–97
--- NOTE | 2021-06-23 | ECG_ITS ---
Test Reason : chest pain Blood Pressure : / mmHG Vent. Rate : 080 BPM Atrial Rate : 080 BPM P-R Int : 166 ms QRS Dur : 096 ms QT Int : 402 ms P-R-T Axes : 014 024 030 degrees QTc Int : 463 ms Normal sinus rhythm Normal ECG When compared with ECG of 22-JUN-2021 12:35, No significant change was found Referred By: Arsh Cade Electronically Signed By:PEGGY JOY MD
[2021-06-23] MEDS: 0.9 % Sodium Chloride 1,000 ML 125 ML IVCONT ×3 (00:30→18:32)
[2021-06-23] MEDS: HYDROmorphone HCl 1 MG/ML SYRINGE IVPUSH ×2 (00:30→08:14)
[2021-06-23] MEDS: oxyCODONE HCl Immed Release 5 MG TABLET PO (03:35)
[2021-06-23 07:41] LABS: Glucose, Whole Blood 205 mg/dL (60-115)
[2021-06-23] MEDS: Insulin Lispro 100 UNIT/ML 3 ML VIAL SUBCUT ×4 (08:10→22:24)
[2021-06-23] MEDS: Pantoprazole Sodium 40 MG/10 ML VIAL IVPUSH ×2 (08:16→22:23)
[2021-06-23] MEDS: nadoloL 20 MG TABLET PO (08:20)
[2021-06-23] MEDS: buPROPion HCl XL 150 MG TAB.ER.24H PO (08:21)
[2021-06-23] MEDS: amLODIPine Besylate 5 MG TABLET PO (08:21)
[2021-06-23] MEDS: Cholecalciferol (Vitamin D3) 25 MCG TABLET 50 MCG PO (08:21)
[2021-06-23] MEDS: Thiamine HCL 100 MG TABLET PO (08:22)
[2021-06-23] MEDS: PHENobarbitaL 30 MG TABLET 60 MG PO ×2 (08:22→22:23)
[2021-06-23] MEDS: Folic Acid 1 MG TABLET PO (08:22)
--- NOTE | 2021-06-23 08:48 | PC.NURSE ---
Pt awake, alert, c/o abd pain on both sides of abd. also c/o distention. no n/v/d. skin pwd. pos BS noted. pt eating full liquid tray. pain med regimin discussed and patient aware of reasons to stick to med plan.
--- NOTE | 2021-06-23 10:16 | HO.PM.IMPN ---
Subjective Subjective Date of Service: 06/23/21 Interval History: CC: f/u on abdominal pain Interval history: has persitent abdominal pain, no nausea, no vomitting Review of Systems abdominal pain, no fever Physical Exam Vital Signs: Vital Signs: Last Vital Signs Temp 98.6 F 06/23/21 08:05 Pulse 83 06/23/21 08:05 Resp 18 06/23/21 08:05 BP 143/79 H 06/23/21 08:05 Pulse Ox 97 06/23/21 08:05 BMI result Body Mass Index 34.0 Const: Other: General: AO X 3, no acute distress Resp: CTA bilateral CVS: S1,S2,RRR GI: +BS, NT, non specific tenderness Skin: No rash Neuro: motor grossly intact Psych: appropriate affect Objective Data Active Medications Acetaminophen (Acetaminophen 325 Mg Tablet) 650 mg PO Q6H PRN PRN Reason: Pain, Mild (Pain Scale 1-3) Al Hydroxide/Mg Hydroxide (Magnesium Hydrox/Alum Hydrox 30 Ml Oral.Susp) 15 ml PO Q6H PRN PRN Reason: heartburn Last Admin: 06/22/21 23:58 Dose: 15 ml Documented by: KORIN Amlodipine Besylate (Amlodipine Besylate 5 Mg Tablet) 5 mg PO DAILY [facility]; Protocol Last Admin: 06/23/21 08:21 Dose: 5 mg Documented by: MIKAELA Bupropion HCl (Bupropion Hcl Xl 150 Mg Tab.Er.24h) 150 mg PO DAILY [facility] Last Admin: 06/23/21 08:21 Dose: 150 mg Documented by: MIKAELA Dextrose (Dextrose 50 % 25 Gm/50 Ml Vial) 25 gm IVPUSH Q15M PRN; Protocol PRN Reason: per Hypoglycemia Standing Ord. Folic Acid (Folic Acid 1 Mg Tablet) 1 mg PO DAILY [facility] Last Admin: 06/23/21 08:22 Dose: 1 mg Documented by: MIKAELA Glucose (Glucose Gel 15 Gm Gel..Gram.) 15 gm PO Q15M PRN; Protocol PRN Reason: per Hypoglycemia Standing Ord. Hydromorphone HCl (Hydromorphone Hcl 1 Mg/Ml Syringe) 1 mg IVPUSH Q6H PRN; Protocol PRN Reason: Pain, Severe (Pain Scale 7-10) Last Admin: 06/23/21 08:14 Dose: 1 mg Documented by: MIKAELA Sodium Chloride (Ns) 1,000 mls @ 125 mls/hr IVCONT .Q8H [facility] Last Admin: 06/23/21 08:11 Dose: 125 mls/hr Documented by: MIKAELA Insulin Human Lispro (Insulin Lispro 100 Unit/Ml 3 Ml Vial) 0 unit SUBCUT QIDACHS [facility]; Protocol Last Admin: 06/23/21 08:10 Dose: 4 unit Documented by: MIKAELA Nadolol (Nadolol 20 Mg Tablet) 20 mg PO DAILY [facility]; Protocol Last Admin: 06/23/21 08:20 Dose: 20 mg Documented by: MIKAELA Nicotine Polacrilex (Nicotine Polacrilex 2 Mg Gum) 2 mg BUCCAL Q2H PRN PRN Reason: Nicotine Cravings Ondansetron HCl (Ondansetron Hcl 4 Mg/2 Ml Vial) 4 mg IVPUSH Q8H PRN PRN Reason: Nausea and Vomiting Oxycodone HCl (Oxycodone Hcl Immed Release 5 Mg Tablet) 5 mg PO Q4H PRN PRN Reason: Pain, Moderate (Pain Scale 4-6 Last Admin: 06/23/21 03:35 Dose: 5 mg Documented by: BARBALEM Pantoprazole Sodium (Pantoprazole Sodium 40 Mg/10 Ml Vial) 40 mg IVPUSH BID [facility] Last Admin: 06/23/21 08:16 Dose: 40 mg Documented by: MIKAELA Pharmacy Consult (Consult Rx Perform Med Rec) 1 each MISCELLANE ONCE PRN PRN Reason: Consult order Phenobarbital (Phenobarbital 30 Mg Tablet) 60 mg PO BID [facility] Stop: 06/24/21 21:01 Last Admin: 06/23/21 08:22 Dose: 60 mg Documented by: MIKAELA Phenobarbital (Phenobarbital 30 Mg Tablet) 30 mg PO BID [facility] Stop: 06/26/21 21:01 Phenobarbital (Phenobarbital 30 Mg Tablet) 30 mg PO DAILY [facility] Stop: 06/28/21 09:01 Sertraline HCl (Sertraline Hcl 100 Mg Tablet) 200 mg PO BEDTIME [facility] Last Admin: 06/22/21 21:04 Dose: 200 mg Documented by: CRESCEK Sodium Chloride (0.9 % Sodium Chloride Flush 3 Ml Syringe) 3 ml IVFLUSH QSHIFT [facility] Last Admin: 06/23/21 08:12 Dose: Not Given Documented by: MIKAELA Non-Admin Reason: Med Not Available Thiamine HCl (Thiamine Hcl 100 Mg Tablet) 100 mg PO DAILY [facility] Last Admin: 06/23/21 08:22 Dose: 100 mg Documented by: MIKAELA Vitamin D (Cholecalciferol (Vitamin D3) 25 Mcg Tablet) 50 mcg PO DAILY [facility] Last Admin: 06/23/21 08:21 Dose: 50 mcg Documented by: MIKAELA Labs CBC & Chem 7: 06/22/21 11:21 06/22/21 11:21 Labs: Laboratory Results - last 24 hr 06/22/21 06/22/21 06/22/21 11:21 11:21 11:21 MCV 87.8 MCH 28.4 MCHC 32.3 RDW 15.0 Plt Count 124 L MPV 10.4 Immature Gran % (Auto) 0.5 H Neut % (Auto) 57.8 Lymph % (Auto) 25.8 [place] % (Auto) 12.6 H Eos % (Auto) 2.8 Baso % (Auto) 0.5 Lymph # (Auto) 1.0 L [place] # (Auto) 0.5 Eos # (Auto) 0.1 Baso # (Auto) 0.0 Abs Immat Gran (auto) 0.02 Absolute Neuts (auto) 2.2 Absolute Nucleated RBC 0.000 Nucleated RBC % (auto) 0.0 PT INR APTT Anion Gap 15 Estim Creat Clear Calc 135.1 Estimated GFR > 60 POC Glucose Random Glucose 291 H Lactic Acid Lactic Acid F/U @ 2Hr Lactic Acid F/U @ 4Hr Calcium 9.5 Magnesium 1.9 Total Bilirubin 1.1 H Direct Bilirubin 0.6 H AST 103 H ALT 40 Alkaline Phosphatase 259 H D Ammonia 48 Lactate Dehydrogenase 143 Total Protein 7.3 Albumin 4.2 Lipase 57 Urine Color Urine Appearance Urine pH Ur Specific [place] Urine Protein Urine Glucose (UA) Urine Ketones Urine Blood Urine Nitrite Ur Leukocyte Esterase Urine Opiates Screen Urine Fentanyl Screen Ur Barbiturates Screen Ur Phencyclidine Scrn Ur Amphetamines Screen U Benzodiazepines Scrn Urine Cocaine Screen U Marijuana (THC) Screen Ethyl Alcohol COVID-19 (CARLITOS) COVID-19 Clin Com 06/22/21 06/22/21 06/22/21 11:21 12:54 12:54 MCV MCH MCHC RDW Plt Count MPV Immature Gran % (Auto) Neut % (Auto) Lymph % (Auto) [place] % (Auto) Eos % (Auto) Baso % (Auto) Lymph # (Auto) [place] # (Auto) Eos # (Auto) Baso # (Auto) Abs Immat Gran (auto) Absolute Neuts (auto) Absolute Nucleated RBC Nucleated RBC % (auto) PT 13.1 H INR 1.2 H APTT 34.4 Anion Gap Estim Creat Clear Calc Estimated GFR POC Glucose Random Glucose Lactic Acid 2.3 H* Lactic Acid F/U @ 2Hr Lactic Acid F/U @ 4Hr Calcium Magnesium Total Bilirubin Direct Bilirubin AST ALT Alkaline Phosphatase Ammonia Lactate Dehydrogenase Total Protein Albumin Lipase Urine Color Urine Appearance Urine pH Ur Specific [place] Urine Protein Urine Glucose (UA) Urine Ketones Urine Blood Urine Nitrite Ur Leukocyte Esterase Urine Opiates Screen Urine Fentanyl Screen Ur Barbiturates Screen Ur Phencyclidine Scrn Ur Amphetamines Screen U Benzodiazepines Scrn Urine Cocaine Screen U Marijuana (THC) Screen Ethyl Alcohol COVID-19 (CARLITOS) Negative COVID-19 Vow To Be Chic See Note 06/22/21 06/22/21 06/22/21 12:54 12:56 12:56 MCV MCH MCHC RDW Plt Count MPV Immature Gran % (Auto) Neut % (Auto) Lymph % (Auto) [place] % (Auto) Eos % (Auto) Baso % (Auto) Lymph # (Auto) [place] # (Auto) Eos # (Auto) Baso # (Auto) Abs Immat Gran (auto) Absolute Neuts (auto) Absolute Nucleated RBC Nucleated RBC % (auto) PT INR APTT Anion Gap Estim Creat Clear Calc Estimated GFR POC Glucose Random Glucose Lactic Acid Lactic Acid F/U @ 2Hr Lactic Acid F/U @ 4Hr Calcium Magnesium Total Bilirubin Direct Bilirubin AST ALT Alkaline Phosphatase Ammonia Lactate Dehydrogenase Total Protein Albumin Lipase Urine Color YELLOW Urine Appearance HAZY Urine pH 6.0 Ur Specific [place] 1.020 Urine Protein NEG Urine Glucose (UA) 500 H Urine Ketones 15 Urine Blood NEG Urine Nitrite NEG Ur Leukocyte Esterase NEG Urine Opiates Screen Not Detected Urine Fentanyl Screen Not Detected Ur Barbiturates Screen Not Detected Ur Phencyclidine Scrn Not Detected Ur Amphetamines Screen Not Detected U Benzodiazepines Scrn Not Detected Urine Cocaine Screen Not Detected U Marijuana (THC) Screen Not Detected Ethyl Alcohol < 10 COVID-19 (CARLITOS) COVID-19 Vow To Be Chic 06/22/21 06/22/21 06/22/21 16:18 18:47 19:10 MCV MCH MCHC RDW Plt Count MPV Immature Gran % (Auto) Neut % (Auto) Lymph % (Auto) [place] % (Auto) Eos % (Auto) Baso % (Auto) Lymph # (Auto) [place] # (Auto) Eos # (Auto) Baso # (Auto) Abs Immat Gran (auto) Absolute Neuts (auto) Absolute Nucleated RBC Nucleated RBC % (auto) PT INR APTT Anion Gap Estim Creat Clear Calc Estimated GFR POC Glucose 161 H Random Glucose Lactic Acid Lactic Acid F/U @ 2Hr 2.3 H* Lactic Acid F/U @ 4Hr 3.4 H* Calcium Magnesium Total Bilirubin Direct Bilirubin AST ALT Alkaline Phosphatase Ammonia Lactate Dehydrogenase Total Protein Albumin Lipase Urine Color Urine Appearance Urine pH Ur Specific [place] Urine Protein Urine Glucose (UA) Urine Ketones Urine Blood Urine Nitrite Ur Leukocyte Esterase Urine Opiates Screen Urine Fentanyl Screen Ur Barbiturates Screen Ur Phencyclidine Scrn Ur Amphetamines Screen U Benzodiazepines Scrn Urine Cocaine Screen U Marijuana (THC) Screen Ethyl Alcohol COVID-19 (CARLITOS) [employer] 06/22/21 06/23/21 22:49 07:38 MCV MCH MCHC RDW Plt Count MPV Immature Gran % (Auto) Neut % (Auto) Lymph % (Auto) [place] % (Auto) Eos % (Auto) Baso % (Auto) Lymph # (Auto) [place] # (Auto) Eos # (Auto) Baso # (Auto) Abs Immat Gran (auto) Absolute Neuts (auto) Absolute Nucleated RBC Nucleated RBC % (auto) PT INR APTT Anion Gap Estim Creat Clear Calc Estimated GFR POC Glucose 169 H 205 H Random Glucose Lactic Acid Lactic Acid F/U @ 2Hr Lactic Acid F/U @ 4Hr Calcium Magnesium Total Bilirubin Direct Bilirubin AST ALT Alkaline Phosphatase Ammonia Lactate Dehydrogenase Total Protein Albumin Lipase Urine Color Urine Appearance Urine pH Ur Specific [place] Urine Protein Urine Glucose (UA) Urine Ketones Urine Blood Urine Nitrite Ur Leukocyte Esterase Urine Opiates Screen Urine Fentanyl Screen Ur Barbiturates Screen Ur Phencyclidine Scrn Ur Amphetamines Screen U Benzodiazepines Scrn Urine Cocaine Screen U Marijuana (THC) Screen Ethyl Alcohol COVID-19 (CARLITOS) [employer] Assessment and Plan (1) Abdominal pain: Status: Acute (2) Alcohol abuse: Status: Acute (3) Acute duodenitis: Status: Acute Plan 51-year-old gentleman with past medical history significant for alcoholic cirrhosis, alcoholic hepatitis, alcohol use disorder, history of recurrent pancreatitis, esophageal varices, GERD, hypertension, hyperlipidemia and obstructive sleep apnea with recurrent hospitalization to [facility] for pancreatitis presented to [facility] due to abdominal pain and alcohol withdrawal symptoms is being admitted to [place] with a diagnosis of acute pancreatitis and alcohol withdrawal. ?Abdominal pain likely due recurrent pancreatitis/ duodenitis ? CT show Diffuse mural thickening involving the C-loop of the duodenum, colitis. last endoscopy at [facility] [place] [place] 6 months ago showed colitis -Cotnineu IV PPI, IV dialauidid and oral Oxycodone for pain control, GI consul ?alcohol use disorder with high likelihood of alcohol withdrawal ?strongly advised to abstain from alcohol will continue phenobarb protocol, folic acid and thiamine ?obtain care team consult ?lactic acidosis? 2.3, due to alcohol, will treat with IV fluids and follow labs ?Diabetes mellitus, clear diet, SSI, on trulicity on fridays ?hypertension will continue amlodipine and nadolol, and resume Lisinopril ?obstructive sleep apnea will order CPAP at night ?history of esophageal varices continue nadolol ?nicotine dependence continue Nicorette gums, counseling done ?history of anxiety continue sertraline and bupropion ?pancytopenia? seems chronic? due to alcohol liver disease ?code status full code ?DVT prophylaxis with compression boots avoid anticoagulation due to low platelet ?Need for inaptient: Ongoing abdominal pain, likely from acute duodenitis and might need endoscopy and presently need IV narcotics for pain control and ongoing treatment for alcohol withdrawal Quality Stroke Does the patient have a stroke diagnosis?: No VTE Prior VTE?: No VTE Risk Level:: Medical - moderate - high VTE Device Contraindication: N/A - Device Ordered VTE Drug Contraindication: Treatment Not Indicated
[2021-06-23] MEDS: oxyCODONE HCl Immed Release 5 MG TABLET 10 MG PO ×3 (11:20→20:04)
--- NOTE | 2021-06-23 11:59 | PC.NURSE ---
pt has been ambulatory at time this am. resting with cpap, complaining of persistent abd pain. had brief period of feeling lousy following dilaudid but arox 20 mins afte dilaudid. was slightly diaphoretic. recovered well.
[2021-06-23 12:40] LABS: Glucose, Whole Blood 225 mg/dL (60-115)
--- NOTE | 2021-06-23 15:14 | PC.NURSE ---
rn to rn with rodney sanders.
--- NOTE | 2021-06-23 15:52 | CONS_ITS ---
DATE OF SERVICE: 06/23/2021 REFERRING PHYSICIAN: Maximiliano Mabry MD REASON FOR CONSULTATION: Abdominal pain and abnormal CT scan of the GI tract. HISTORY OF PRESENT ILLNESS: The patient is a pleasant 51-year-old man, who was admitted to the hospital after presenting to the Emergency Department yesterday with complaints of abdominal pain with nausea, but no vomiting. He has a history of alcohol abuse with pancreatitis and nonbleeding esophageal varices as well as cirrhosis and has had intermittent periods of sobriety, but has been recently drinking approximately 10 drinks daily for the last several weeks. There has been no hematemesis or melena. He did have complaints of epigastric pain similar to previous episodes of pancreatitis and he presented to the emergency room where he was found to have elevations of his liver tests and a pattern consistent with alcohol. Lipase was normal. CT scanning was obtained, which is reviewed. This shows thickening of the duodenal C-loop, which has been present on previous CT scans. The patient does have a history of reflux disease and is prescribed omeprazole 20 mg daily, but states he ran out of this medication several days prior to admission. PAST MEDICAL HISTORY: 1. Cirrhosis on the basis of alcohol with nonbleeding esophageal varices. 2. Pancreatitis. 3. Gastroesophageal reflux disease. 4. Hypertension. 5. Hyperlipidemia. 6. Sleep apnea. 7. Nonbleeding esophageal varices, upper endoscopy 12/04/2020 with mild portal hypertensive gastropathy. CURRENT MEDICATIONS: His current medication list is reviewed in the chart. He is on nadolol. ALLERGIES: MULTIPLE MEDICATION ALLERGIES ARE REVIEWED. FAMILY HISTORY: This is reviewed with the patient and is noncontributory. SOCIAL HISTORY: Alcohol use is as noted above. REVIEW OF SYSTEMS: SKIN: No pruritus. HEENT: Negative. CARDIOPULMONARY: No shortness of breath or chest pain. GASTROINTESTINAL: As above. GENITOURINARY: Negative. NEUROPSYCHIATRIC: Negative. PHYSICAL EXAMINATION: GENERAL: Shows a pleasant male, sitting comfortably in bed. VITAL SIGNS: Reviewed in electronic medical record and are stable. SKIN: Anicteric. HEENT: Shows no scleral icterus. NECK: Without lymphadenopathy or thyromegaly. LUNGS: Clear. HEART: Shows regular rate and rhythm. S1, S2. No murmur. ABDOMEN: Soft without focal masses. There is some mild distention. There is no guarding or rebound. EXTREMITIES: Trace edema. LABORATORY DATA: Reviewed. CT scanning is reviewed with Dr. Seaman. IMPRESSION: Abdominal pain with alcoholic cirrhosis and history of nonbleeding esophageal varices. His CT scan findings are consistent with duodenitis, which is most likely on the basis of alcohol. He does not appear to have any GI bleeding on at this time. I would recommend continuing a proton pump inhibitor and he is advised to discontinue alcohol. He has outpatient followup scheduled at [facility]. Thanks for asking me to see him. I will follow him in the hospital with you. MD PADMINI Hanks/MUSTAPHA / [phone]
[2021-06-23 16:42] LABS: Glucose, Whole Blood 262 mg/dL (60-115)
[2021-06-23] MEDS: Magnesium Hydrox/Alum Hydrox 30 ML ORAL.SUSP 15 ML PO ×2 (17:08→23:02)
[2021-06-23] MEDS: 0.9 % Sodium Chloride Flush 3 ML SYRINGE IVFLUSH (17:12)
[2021-06-23] MEDS: polyethylene glycoL 3350 17 GM POWD.PACK PO (18:32)
[2021-06-23] MEDS: Nicotine Polacrilex 2 MG GUM BUCCAL (18:32)
[2021-06-23 20:48] LABS: Glucose, Whole Blood 236 mg/dL (60-115)
[2021-06-23] MEDS: Sertraline HCL 100 MG TABLET 200 MG PO (22:23)
[2021-06-23] MEDS: Famotidine 20 MG TABLET PO (23:57)
[2021-06-24 00:13] LABS: Troponin-I High Sensitivity 6.5 ng/L (<3.5-35.0)
[2021-06-24] MEDS: 0.9 % Sodium Chloride 1,000 ML 125 ML IVCONT (00:20)
[2021-06-24] MEDS: oxyCODONE HCl Immed Release 5 MG TABLET 10 MG PO ×4 (00:21→12:51)
[2021-06-24] MEDS: Nicotine Polacrilex 2 MG GUM BUCCAL ×3 (00:22→12:55)
[2021-06-24 04:00] VITALS: BP 111/65; PULSE 78; RESP 18; TEMP 36.6; O2SAT 97
--- NOTE | 2021-06-24 04:38 | PC.NURSE ---
2320 pt c/o high intense epigastric pain going up his esophagaus up to his neck and with that some pain in mid chest he said it was after he receved his pm medications, maalax was given but he still had pain didnt go away dr Rawls was notified pepcid po given as ordered and after he had some gingerale he said few bubbles came up and he feels much better now.
[2021-06-24 07:08] VITALS: BP 136/78; PULSE 72; RESP 18; TEMP 36.3; O2SAT 94
[2021-06-24 07:17] LABS: Glucose, Whole Blood 204 mg/dL (60-115)
[2021-06-24] MEDS: Insulin Lispro 100 UNIT/ML 3 ML VIAL SUBCUT ×2 (07:43→11:58)
[2021-06-24] MEDS: Folic Acid 1 MG TABLET PO (07:47)
[2021-06-24] MEDS: amLODIPine Besylate 5 MG TABLET PO (07:47)
[2021-06-24] MEDS: Cholecalciferol (Vitamin D3) 25 MCG TABLET 50 MCG PO (07:47)
[2021-06-24] MEDS: buPROPion HCl XL 150 MG TAB.ER.24H PO (07:47)
[2021-06-24] MEDS: PHENobarbitaL 30 MG TABLET 60 MG PO (07:47)
[2021-06-24] MEDS: polyethylene glycoL 3350 17 GM POWD.PACK PO (07:48)
[2021-06-24] MEDS: Thiamine HCL 100 MG TABLET PO (07:48)
[2021-06-24] MEDS: nadoloL 20 MG TABLET PO (07:48)
--- NOTE | 2021-06-24 08:53 | PM.DS ---
DS: Providers Provider Date of Service: 07/25/21 Date of admission: 06/22/21 15:51 Primary care physician: Gigi Garcia MD Consults: 06/22/21 16:00 Consult to Care Team Routine Comment: Reason for consultation: etoh 06/23/21 10:27 Consult to Gastroenterology Routine Consulting Provider: Daryrn Qureshi Reason for consultation: Abdominal pain ? colitis, pancreatitis Has provider been notified: No DS: Diagnosis Discharge Diagnosis (1) Abdominal pain: Status: Resolved (2) Alcohol abuse: (3) Acute duodenitis: Status: Acute DS: Summary Hospital Course Hospital Course: Chief Complaint:? abdominal pain ?51-year-old gentleman with past medical history significant for alcoholic cirrhosis, alcoholic hepatitis, history of recurrent episodes of pancreatitis, history of alcohol use disorder, esophageal varices, GERD, hypertension, hyperlipidemia and obstructed sleep apnea presented to [facility] due to abdominal pain, as per patient he has been sober on and off he relapsed 3 weeks ago and have been drinking 8 beers per day in addition to 2 nips of vodka, he developed abdominal pain? 1 week ago localize to both right and left upper quadrants associated with nausea and intermittent vomiting, associated with diarrhea, decrease by mouth intake, denies hematemesis or melena he also noted abdominal distension of few days duration, he stopped drinking but developed withdrawal symptoms of shakiness and hand tremors so he had 1 beer last night, due to persistent abdominal pain he came to the emergency room,? patient denies fever chills, no shortness of breath, no headache, no dizziness no urinary symptoms, in the emergency room he was noted to have mild tachycardia, tachypnea he was afebrile with normal oxygenation, CT abdomen and pelvis? showed diffuse mural thickening involving C-loop of the duodenum fat stranding of? adjacent mesentery, finding suggestive of duodenitis? and mild pancreatitis, patient also noted to have elevated lactic acid therefore treated in the emergency room with IV fluids, IV Dilaudid and phenobarb for alcohol withdrawal and now being admitted with concern for alcohol withdrawal and abdominal pain related to gastritis / duodenitis with difficulty keeping food down. Hospital course: Patient was admitted for abdominal pain and noted to ahve duodenitis on CT with no active bleed, this is likely related to alcohol use. He was treated with IV PPI (Protnix) and was evaluated by GI and recommend that he stopps drinking alcohol altogether and to follow up with GI Doctor at [facility], he has appointment set up already. He was on Phenobarbital for alcohool withdrawal prevention but has not had overt withdrawal syndrome. Time Spent with Patient Time attestation: Total time spent providing and/or coordinating discharge services: Discharge coordination time: Greater than 30 minutes Quality: Stroke Does the patient have a stroke diagnosis?: No Physical Exam Vital Signs: Vital Signs: Last Vital Signs Temp 97.3 F 06/24/21 07:08 Pulse 72 06/24/21 07:08 Resp 18 06/24/21 07:08 BP 136/78 06/24/21 07:08 Pulse Ox 94 06/24/21 07:08 BMI result Body Mass Index 34.0 DS: Data Data Completed and Pending Labs on day of discharge: Laboratory Results - last 24 hr 06/23/21 06/23/21 06/23/21 12:37 16:08 19:44 POC Glucose 225 H 262 H 236 H Troponin I High Sens 06/23/21 06/24/21 23:46 07:12 POC Glucose 204 H Troponin I High Sens 6.5 Discharge Plan Discharge Anticipated Discharge Date/Time: 06/24/21 12:24 Patient Disposition: Home, Self-Care Discharge Diagnosis: Acute duodenitis Referrals: Gigi Garcia MD [Primary Care Provider] - 1 Week Discharge Medications: New oxycodone 5 mg tablet 5 mg PO Q6H PRN (Reason: pain) Qty: 15 0RF Continued sertraline 100 mg tablet 2 tab PO BEDTIME 0RF thiamine HCl (vitamin B1) [Vitamin B-1] 100 mg tablet 1 tab PO DAILY 0RF folic acid 1 mg tablet 1 tab PO DAILY 0RF bupropion HCl 150 mg tablet extended release 24 hr 1 tab PO DAILY 0RF cholecalciferol (vitamin D3) [D3-2000] 50 mcg (2,000 unit) capsule 1 cap PO DAILY 0RF amlodipine 5 mg tablet 1 tab PO DAILY 0RF nicotine (polacrilex) 2 mg gum 1 ea PO Q2H PRN (Reason: Nicotine Cravings) 0RF nadolol 20 mg tablet 1 tab PO DAILY 0RF lisinopril 20 mg tablet 1 tab PO DAILY 0RF Trulicity 1.5 mg/0.5 mL pen injector 1.5 mg subcut FR 0RF Discharge Orders: Discharge Order (Routine); Ordered 06/24/21 Ordered By: Maximiliano Mabry Diet: advance to usual diet Activity on Discharge: As tolerated Stand Alone Forms: Patient Portal Discharge page Care Plan Goals: Full recovery from duodenitis Health Concerns: Duodenitis Plan of Treatment: Take Prilosec as directed, avoid alcohol, do NOT Take Motrin, Advil, Assessment: As above Discharge Date/Time: 06/24/21 15:23
--- NOTE | 2021-06-24 09:30 | MHC.RECOVRN ---
Late entry Met with pt on 06/23 at 1300 in ED18 prior to transfer to to discuss substance use. Pt awake, alert, watching TV. Pt currently admitted for abdominal pain, alcohol withdrawal, and acute duodenitits. Pt reports alcohol use, 3-4 25 oz beers plus a few nips daily x 3 weeks. Pt reports alcohol use began 3 years ago, with no identified trigger. Pt states I had a beer after work one day and I forgot what it felt like to be drunk. Then I just kept going. Denies other substances. Pt reports family hx AUD. Currently lives alone with a cat and bearded dragon. Pt reports hx acamprosate due to inability to initiate naltrexone due to cirrhosis. Pt interested in restarting medication. Pt denies ATS admissions, has been treated for alcohol withdrawal through medical hospitalizations. Pt has attended PHP in the past to address anxiety and depression, would like to be referred [place] [facility]. Pt has utilized AA in the past and plans to return after discharge. Pt provided with many community supports and resources, including information about the [facility] and medications for AUD. Denies questions or concerns at this time. Pt given t/w contact information if needed. T/w spoke with CM who will put in referral for PHP. Discussed with Corrina Miramontes APRN.
[2021-06-24] MEDS: Magnesium Hydrox/Alum Hydrox 30 ML ORAL.SUSP 15 ML PO (09:38)
[2021-06-24 11:15] VITALS: BP 137/76; PULSE 83; RESP 20; TEMP 36.2; O2SAT 96
[2021-06-24 11:37] LABS: Glucose, Whole Blood 262 mg/dL (60-115)
--- NOTE | 2021-06-24 13:31 | MHC.CM.PN ---
Addendum entered by Misti Tipton RN 06/24/21 15:09: PER [employer]ER PT DOES NOT QUALIFY FOR PHP AND REFERRAL WILL NOT NEED TO BE PLACED. Original Note: PT MEDICALLY CLEARED FOR D/C HOME W/RESUMP OF [employer] H[employer] AND REFERRAL TO PHP PER RECOVERY SUPPORT NURSE, PT TO ARRANGE TRANSPORT.
== END 2021-06-24 15:23 | disposition home or self-care (01) | DRG 433 ==
LOC: HO.ED 14:53 → HO.EDOVER 15:57 → HO.S3 06-23 14:39
PROVIDERS: Internal Medicine; Admitting Provider Hospitalist; Emergency Provider Emergency Medicine; PCP Internal Medicine; Visit Provider Internal Medicine
DX: K70.10 Alcoholic hepatitis without ascites (principal); E87.2 Acidosis; I85.10 Secondary esophageal varices without bleeding; D61.818 Other pancytopenia; F41.9 Anxiety disorder, unspecified; G47.33 Obstructive sleep apnea (adult) (pediatric); K70.30 Alcoholic cirrhosis of liver without ascites; K29.80 Duodenitis without bleeding; F10.10 Alcohol abuse, uncomplicated; Z20.822 Contact with and (suspected) exposure to COVID-19; Z79.899 Other long term (current) drug therapy
CPT/HCPCS: 36415; 74177; 80048; 80076; 80307; 81003; 82077; 82140; 82947; 83605; 83615; 83690; 83735; 84484; 85025; 85610; 85730; 87635; 93005; 94660; 99285; J1170; J2060; J2405; J2560; J3411; Q9967

== ENCOUNTER 2021-07-12 21:35 | Emergency (ER) | payer OTHER, SELFPAY | END 2021-07-12 22:42 | disposition left against medical advice (07) | PROVIDERS: Emergency Provider Emergency Medicine; PCP Internal Medicine | DX: K92.0 Hematemesis (principal); K74.60 Unspecified cirrhosis of liver; F10.20 Alcohol dependence, uncomplicated; Y90.9 Presence of alcohol in blood, level not specified; F17.200 Nicotine dependence, unspecified, uncomplicated ==